=== PATIENT | female | born 1975 | race Caucasian/White ===

== ENCOUNTER 2020-12-19 22:08 | Emergency (ER) | payer OTHER ==
[2020-12-20] MEDS ORDERED: TESSALON PERLE100 MG PO (03:25)
[2020-12-20] MEDS ORDERED: VENTOLIN HFA 66.7 GM INH (03:25)
== END 2020-12-20 03:42 | disposition home or self-care (01) ==
LOC: ER1 22:08
DX: J02.9 Acute pharyngitis, unspecified (principal); Z20.822 Contact with and (suspected) exposure to COVID-19; Z90.49 Acquired absence of other specified parts of digestive tract
CPT/HCPCS: 0240U; 87081; 87880; 99283